=== PATIENT | female | born 1950 | race Caucasian/White ===

== ENCOUNTER 2017-03-08 08:00 | Day surgery (SDC) | payer MEDICARE ==
[2017-03-04 11:33] VITALS: BMI 29.4
[2017-03-08 08:40] LABS: BASO % 1.1 % (0-2.0); EOS % 3.9 % (0-4.5); HEMATOCRIT 41.5 % (32.4-45.2); HEMOGLOBIN 13.5 GM/dL (10.7-15.3); LYMPH % 41.1 % (8-40); MCH 31.5 pg (25.7-33.7); MCHC 32.6 g/dl (32.0-36.0); MEAN CELL VOLUME 96.6 fl (80-96); MEAN PLT VOLUME 8.1 fl (7.5-11.1); MONO % 5.8 % (3.8-10.2); NEUT % 48.1 % (42.8-82.8); PLATELET COUNT 272 K/MM3 (134-434); RDW 14.7 % (11.6-15.6); WHITE BLOOD COUNT 6.1 K/mm3 (4.0-10.0)
[2017-03-08 08:49] VITALS: TEMP 98.3
[2017-03-08 08:56] LABS: INR 0.79 (0.82-1.09); PROTHROMBIN TIME (PATIENT) 8.9 SEC (9.98-11.88)
[2017-03-08 08:57] LABS: ALBUMIN 1.7 g/dl (3.4-5.0); ANION GAP 5 (8-16); BLOOD UREA NITROGEN 10 mg/dL (7-18); CALCIUM 7.8 mg/dL (8.5-10.1); CHLORIDE 109 mmol/L (98-107); CO2 30 mmol/L (21-32); CREATININE 0.3 mg/dL (0.55-1.02); GLUCOSE,RANDOM 116 mg/dL (74-106); POTASSIUM 3.9 mmol/L (3.5-5.1); SGOT/AST 11 U/L (15-37); SGPT/ALT 13 U/L (12-78); SODIUM 144 mmol/L (136-145)
[2017-03-08 09:00] LABS: ALK PHOS 74 U/L (45-117); BILIRUBIN,TOTAL 0.1 mg/dL (0.2-1.0); TOT PROT 4.9 g/dl (6.4-8.2)
[2017-03-08 14:51] VITALS: BP 135/60; PULSE 82
--- NOTE | 2017-03-21 17:16 | PATH ---
Surgical Pathology Report Patient Name: MEI CALLOWAY [facility]. Rec. #: [id number] /Age/Gender: 1950 (Age: 66) / F Account: [id number] Location: Taken: 03/08/2017 Received: 03/08/2017 Reported: 03/21/2017 Physicians: Trae Dangelo M.D. Specimen(s) Received RENAL BIOPSY Clinical History 66 year-old female with nephrotic disease and diffuse membranous GNP resolved ??? now with ??? Intraoperative Consult Diagnosis Renal biopsy (intraoperative): Glomeruli present. Chanel Alva M.D., 03/08/17 Final Diagnosis KIDNEY, BIOPSY: MEMBRANOUS GLOMERULOPATHY, STAGE 2-3. ARTERIOLOSCLEROSIS WITH HYALINOSIS, MILD TO MODERATE. 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 The differential diagnosis includes primary & secondary forms of the MGN. HBV, HCV, & JAMES serologies are recommended. IF staining for PLA2R will be performed and a supplemental report will follow. Case sent for consultation to Dr. Delon Disla from [place], [place] ([id number]), the diagnosis above reflects his opinion. See complete report ([id number]) from [place], [place] for additional details. Electronically Signed Tiarra Lobo M.D. Gross Description Received fresh labeled "right renal biopsy," is a 1.3 cm in length x 0.1 cm in diameter short, cylindrical portion of soft tissue. The specimen is divided, placed into 10% buffered formalin, Dejuan fixative and glutaraldehyde. The specimen is sent to [facility] for further studies. 03/08/201703/08/2017
== END 2017-03-08 14:58 | disposition home or self-care (01) ==
LOC: JRADIR 08:00
PROVIDERS: ATTEND Internal Medicine Nephrology
PROC: 0TB03ZX Excision of Right Kidney, Percutaneous Approach, Diagnostic (ICD-10-PCS; principal; 2017-03-08)
PROC: BT41ZZZ Ultrasonography of Right Kidney (ICD-10-PCS; 2017-03-08)
DX: N04.9 Nephrotic syndrome with unspecified morphologic changes (principal)
CPT/HCPCS: 36415; 50200; 76098-TC-FY; 76942-TC; 76998-TC; 80053; 85025; 85610; 87899; 88305-TC

== ENCOUNTER 2017-07-04 04:24 | Emergency (ER) | payer MEDICARE ==
[2017-07-04 06:17] VITALS: BMI 28.6
--- NOTE | 2017-07-04 06:52 | PDOC ---
History of Present Illness - General Chief Complaint: Pain, Acute Stated Complaint: LEFT LEG PAIN Time Seen by Provider: 07/04/17 06:40 History Source: Patient Exam Limitations: No Limitations - History of Present Illness Initial Comments: 66-year-old female with past medical history significant for hypothyroidism hypertension renal insufficiency and neuropathy presents to the ER for evaluation of left hip pain after fall 2 days ago she points to the lateral aspect of the left hip as the area of her discomfort. She has difficulty walking no prior problems the left hip 07/04/17 06:47 Past History - Past Medical History Allergies/Adverse Reactions: Allergies Allergy/AdvReac Type Severity Reaction Status Date / Time No Known Drug Allergies Allergy Verified 07/04/17 06:17 Home Medications: Ambulatory Orders Paroxetine HCl [Paxil -] 20 mg PO DAILY #0 tablet 03/05/13 Zolpidem Tartrate [Ambien] 10 mg PO HS PRN #0 tablet 03/05/13 Levothyroxine [Synthroid -] 250 mcg PO DAILY 11/07/14 Losartan Potassium [Cozaar -] 50 mg PO BID 11/07/14 Ropinirole HCl [Requip -] 0.25 mg PO HS PRN 11/07/14 Atorvastatin Ca [Lipitor] 40 mg PO DAILY 03/04/17 Furosemide [Lasix] 40 mg PO BID 03/04/17 Vitamin D3 - 1,000 iu PO DAILY 03/04/17 Anemia: No Asthma: No Cancer: No Cardiac Disorders: No CVA: No COPD: Yes CHF: No Dementia: No Diabetes: No GI Disorders: No Disorders: No HTN: Yes Hypercholesterolemia: Yes Liver Disease: No Seizures: No Thyroid Disease: Yes (Hypothyroid) - Surgical History Abdominal Surgery: No Appendectomy: Yes Cardiac Surgery: No Cholecystectomy: Yes Lung Surgery: No Neurologic Surgery: No Orthopedic Surgery: Yes (ARTHROSCOPY BILAT KNEES; RIGHT WRIST SX) - Suicide/Smoking/Psychosocial Hx Smoking Status: Yes Smoking History: Current every day smoker Have you smoked in the past 12 months: Yes Number of Cigarettes Smoked Daily: 15 Information on smoking cessation initiated: No 'Breaking Loose' booklet given: 03/08/17 Hx Alcohol Use: No Drug/Substance Use Hx: No Substance Use Type: None Hx Substance Use Treatment: No Review of Systems - Review of Systems Musculoskeletal: Yes: Joint Pain All Other Systems: Reviewed and Negative *Physical Exam - Vital Signs Last Vital Signs Temp Pulse Resp BP Pulse Ox 98.2 F 97 H 18 166/92 97 07/04/17 06:14 07/04/17 06:14 07/04/17 06:14 07/04/17 06:14 07/04/17 06:14 - Physical Exam Comments: There is a small area of ecchymosis on the lateral aspect of the left hip on the skin overlying the iliac crest she has pain with internal and external rotation the left hip tenderness with mild pelvic compression thighs and calves are soft and nontender. She has no gross sensorimotor deficits. 07/04/17 06:50 Medical Decision Making - Medical Decision Making 66-year-old female with left hip injury after a fall. X-rays are pending. Differential includes fracture the pelvis, proximal femur or contusion. 07/04/17 06:54 *DC/Admit/Observation/Transfer - Discharge Dispostion Condition at time of disposition: Fair - Referrals - Patient Instructions - Post Discharge Activity
--- NOTE | 2017-07-04 08:58 | PDOC ---
*Physical Exam - Vital Signs Last Vital Signs Temp Pulse Resp BP Pulse Ox 98.2 F 97 H 18 166/92 97 07/04/17 06:14 07/04/17 06:14 07/04/17 06:14 07/04/17 06:14 07/04/17 06:14 ED Treatment Course - Medications Given in the ED: ED Medications Discontinued Medications Generic Name Dose Route Start Last Admin Trade Name Freq PRN Reason Stop Dose Admin Oxycodone/Acetaminophen 1 combo 07/04/17 06:44 07/04/17 06:49 Percocet 5/325 - PO 07/04/17 06:45 1 combo ONCE ONE Administration Medical Decision Making - Medical Decision Making 07/04/17 08:47 Patient received in sign out from ABHIJEET Durbin. Patient s/p fall. Patient's x-ray negative for hip fracture. Patient will be discharged home with recommendations to take Motrin 600 and to follow-up with orthopedist if symptoms continue. *DC/Admit/Observation/Transfer Diagnosis at time of Disposition: Hip pain - Discharge Dispostion Disposition: HOME Condition at time of disposition: Good - Referrals Referrals: Donal Chacon MD [Staff Physician] - - Patient Instructions Printed Discharge Instructions: DI for Contusion Additional Instructions: Please follow-up with Dr. Chacon and take Percocet as needed for discomfort but do not operate heavy machinery while taking this medication. - Post Discharge Activity
[2017-07-04 09:17] VITALS: BP 145/93; PULSE 98; TEMP 98.1
== END 2017-07-04 09:22 | disposition home or self-care (01) ==
LOC: JER 04:24
DX: S70.02XA Contusion of left hip, initial encounter (principal); W18.39XA Other fall on same level, initial encounter; Y93.89 Activity, other specified; Y92.038 Other place in apartment as the place of occurrence of the external cause; Y99.8 Other external cause status; I10 Essential (primary) hypertension; E78.00 Pure hypercholesterolemia, unspecified; E03.9 Hypothyroidism, unspecified; J44.9 Chronic obstructive pulmonary disease, unspecified
CPT/HCPCS: 73523-TC-FY; 99282-25

== ENCOUNTER 2020-01-29 06:06 | Day surgery (SDC) | payer MEDICARE, OTHER ==
[2020-01-24 17:06] VITALS: BMI 29.6
[2020-01-29] MEDS ORDERED: oxyCODONE HCL 5 MG TABLET PO PRN (06:55)
[2020-01-29] MEDS ORDERED: ONDANSETRON 4 MG/2 ML VIAL IVPUSH PRN (06:55)
[2020-01-29] MEDS ORDERED: LACTATED RINGERS SOLUTION 1,000 ML IV SCH (07:00)
[2020-01-29] MEDS ORDERED: ERYTHROMYCIN 0.5% OPHTHALMIC OINTMENT 3.5 GM TUBE ONE (07:08)
[2020-01-29] MEDS ORDERED: LIDOCAINE 1%/EPI 1:100000 (20 ML MULTI DOSE VIAL) ONE (07:08)
[2020-01-29] MEDS ORDERED: TETRACAINE 0.5% OPHTH SOLN 2 ML BOTTLE ONE (07:08)
[2020-01-29] MEDS ORDERED: BUPIVACAINE HCL/PF 0.5% (5MG/ML) 10 ML VIAL ONE (07:08)
[2020-01-29] MEDS ORDERED: POVIDONE-IODINE 5% OPHTHALMIC PREP 30 ML SOLUTION ONE (07:08)
[2020-01-29] MEDS ORDERED: MIDAZOLAM HCL 2 MG/2 ML SINGLE DOSE VIAL ONE ×3 (07:17→08:38)
[2020-01-29] MEDS ORDERED: PROPOFOL 20 ML ONE (07:17)
[2020-01-29] MEDS ORDERED: GLYCOPYRROLATE 0.2 MG/1 ML VIAL ONE (07:53)
[2020-01-29] MEDS ORDERED: KETAMINE HCL 200 MG/20 ML VIAL ONE (08:00)
[2020-01-29] MEDS ORDERED: ceFAZolin SODIUM 1 GM VIAL ONE (08:17)
[2020-01-29] MEDS ORDERED: ENALAPRILAT DIHYDRATE 2.5 MG/2 ML VIAL IVPB ONE (08:37)
[2020-01-29 10:43] VITALS: TEMP 97.9
[2020-01-29 12:31] VITALS: BP 134/88
[2020-01-29 12:42] VITALS: PULSE 78
== END 2020-01-29 12:25 | disposition home or self-care (01) ==
LOC: FASU 06:06
PROVIDERS: ATTEND Ophthalmology
PROC: 08SQ0ZZ Reposition Right Lower Eyelid, Open Approach (ICD-10-PCS; principal; 2020-01-29 08:20)
DX: H02.032 Senile entropion of right lower eyelid (principal)
CPT/HCPCS: 88304-TC; 94760

== ENCOUNTER 2021-08-20 14:31 | Emergency (ER) | payer OTHER ==
[2021-08-20 14:34] VITALS: TEMP 98.2; BMI 29.9
[2021-08-20] MEDS ORDERED: MECLIZINE HCL 25 MG TABLET (FP) PO ONE (16:42)
[2021-08-20] MEDS ORDERED: SODIUM CHLORIDE 0.9% 500 ML INFUS.BAG IV ONE (16:42)
[2021-08-20] MEDS ORDERED: METOCLOPRAMIDE HCL INJECTION 10 MG/2 ML VIAL IVPUSH ONE (16:43)
[2021-08-20] MEDS ORDERED: LORazepam 2 MG/ML SDV VIAL IVPUSH ONE ×2 (17:01)
[2021-08-20] MEDS ORDERED: METOCLOPRAMIDE HCL INJECTION 10 MG/2 ML VIAL ONE (17:28)
[2021-08-20] MEDS ORDERED: MECLIZINE HCL 25 MG TABLET (FP) ONE (17:28)
[2021-08-20 17:54] LABS: BASO % 1.3 % (0-2.0); EOS % 1.4 % (0-4.5); HEMOGLOBIN 13.1 GM/dL (10.7-15.3); LYMPH % 20.2 % (8-40); MCH 31.2 pg (25.7-33.7); MCHC 33.7 g/dl (32.0-36.0); MEAN CELL VOLUME 92.6 fl (80-96); MEAN PLT VOLUME 8.1 fl (7.5-11.1); NEUT % 72.1 % (42.8-82.8); PLATELET COUNT 290 10^3/uL (134-434); RBC 4.21 M/mm3 (3.60-5.2); WHITE BLOOD COUNT 7.8 K/mm3 (4.0-10.0)
[2021-08-20 17:56] VITALS: BP 148/84; PULSE 79
[2021-08-20 18:02] LABS: INR 0.94 (0.83-1.09); PROTHROMBIN TIME (PATIENT) 10.8 SEC (9.7-13.0)
[2021-08-20 18:05] LABS: ACTIVATED PTT 26.4 SECONDS (25.2-36.5)
[2021-08-20 18:11] LABS: ALBUMIN 2.7 g/dl (3.4-5.0); BLOOD UREA NITROGEN 11.5 mg/dL (7-18); CALCIUM 9.3 mg/dL (8.5-10.1); MAGNESIUM 1.9 mg/dL (1.8-2.4)
[2021-08-20 18:14] LABS: CREATININE 0.4 mg/dL (0.55-1.3); PHOSPHOROUS 5.6 mg/dL (2.5-4.9)
[2021-08-20 18:16] LABS: BILIRUBIN,TOTAL 0.2 mg/dL (0.2-1)
[2021-08-20 21:50] LABS: EPI CELLS 10 /uL (0-25.1); HYALINE CASTS 1 /uL (0-3.1); URINE APPEARANCE CLEAR; URINE BACTERIA 204 /uL (0-1359); URINE BILIRUBIN NEGATIVE (NEGATIVE); URINE COLOR YELLOW; URINE GLUCOSE (UA) NEGATIVE (NEGATIVE); URINE KETONE NEGATIVE (NEGATIVE); URINE LEUK ESTERASE NEGATIVE (NEGATIVE); URINE NITRITE NEGATIVE (NEGATIVE); URINE PROTEIN 3+ (NEGATIVE); URINE UROBILINOGEN 0.2 mg/dL (0.2-1.0); URINE WBC 46 /uL (0-25.8)
[2021-08-20 23:35] LABS: URINE RBC 35 /uL (0-23.9)
== END 2021-08-20 20:35 | disposition home or self-care (01) ==
LOC: JER 14:31
PROC: 3E033NZ Introduction of Analgesics, Hypnotics, Sedatives into Peripheral Vein, Percutaneous Approach (ICD-10-PCS; principal; 2021-08-20)
PROC: 3E033GC Introduction of Other Therapeutic Substance into Peripheral Vein, Percutaneous Approach (ICD-10-PCS; 2021-08-20)
DX: R42 Dizziness and giddiness (principal)
CPT/HCPCS: 36415; 70450-TC; 80053; 81003; 83735; 84100; 84484; 85025; 85610; 85730; 87086; 93005; 93010; 99285-25

== ENCOUNTER 2023-02-02 13:50 | Inpatient (IN) | payer OTHER ==
[2023-02-02] MEDS ORDERED: ALBUTEROL SO4 2.5/IPRATROPIUM 0.5 INH SOL 3 ML VIAL.NEB. NEB ONE ×2 (15:21→15:37)
[2023-02-02 16:14] LABS: VENOUS BASE EXCESS 2.8 mmol/L (-2-2); VENOUS PCO2 57.3 mmHg (38-52); VENOUS PH 7.336 (7.310-7.410)
[2023-02-02 16:29] LABS: BASO % 1.3 % (0-2.0); EOS % 2.2 % (0-4.5); HEMATOCRIT 37.3 % (32.4-45.2); HEMOGLOBIN 12.2 GM/dL (10.7-15.3); LYMPH % 24.1 % (8-40); MCH 31.3 pg (25.7-33.7); MCHC 32.7 g/dl (32.0-36.0); MEAN CELL VOLUME 95.8 fl (80-96); MEAN PLT VOLUME 8.1 fl (7.5-11.1); MONO % 6.9 % (3.8-10.2); NEUT % 65.5 % (42.8-82.8); PLATELET COUNT 247 10^3/uL (134-434); RBC 3.89 M/mm3 (3.60-5.2); RDW 15.4 % (11.6-15.6); WHITE BLOOD COUNT 6.2 K/mm3 (4.0-10.0)
[2023-02-02 16:41] LABS: CHLORIDE 106 mmol/L (98-107); POTASSIUM 3.5 mmol/L (3.5-5.1); SODIUM 143 mmol/L (136-145)
[2023-02-02 16:44] LABS: CALCIUM 8.1 mg/dL (8.5-10.1)
[2023-02-02 16:45] LABS: ALBUMIN 1.9 g/dl (3.4-5.0); ANION GAP 3 mmol/L (4-13); BLOOD UREA NITROGEN 6.6 mg/dL (7-18); CO2 34 mmol/L (21-32); GLUCOSE,RANDOM 92 mg/dL (74-106); MAGNESIUM 2.1 mg/dL (1.8-2.4)
[2023-02-02 16:48] LABS: CREATININE 0.5 mg/dL (0.55-1.3); SGOT/AST 19 U/L (15-37); SGPT/ALT 20 U/L (13-61)
[2023-02-02 16:49] LABS: TOT PROT 4.8 g/dl (6.4-8.2)
[2023-02-02 16:50] LABS: BILIRUBIN,TOTAL < 0.1 mg/dL (0.2-1)
[2023-02-02 16:51] LABS: ALK PHOS 60 U/L (45-117)
[2023-02-02 21:24] LABS: EPI CELLS 29 /uL (0-25.1); HYALINE CASTS 3 /uL (0-3.1); URINE APPEARANCE CLEAR; URINE BACTERIA 61 /uL (0-1359); URINE BILIRUBIN NEGATIVE (NEGATIVE); URINE COLOR YELLOW; URINE GLUCOSE (UA) NEGATIVE (NEGATIVE); URINE KETONE NEGATIVE (NEGATIVE); URINE LEUK ESTERASE NEGATIVE (NEGATIVE); URINE NITRITE NEGATIVE (NEGATIVE); URINE PROTEIN 4+ (NEGATIVE); URINE RBC 20 /uL (0-23.9); URINE UROBILINOGEN 0.2 mg/dL (0.2-1.0)
[2023-02-02 21:29] LABS: URINE WBC 89.7 /uL (0-25.8)
[2023-02-03] MEDS ORDERED: rOPINIRole HCL 0.25 MG TABLET PO PRN (03:00)
[2023-02-03] MEDS ORDERED: FUROSEMIDE 40 MG/4 ML INJECTABLE VIAL IVPUSH ONE (03:30)
[2023-02-03] MEDS: methylPREDNISolone NA SUCC 40 MG/1 ML VIAL IVPUSH SCH ×3 (04:02→21:57)
[2023-02-03 04:13] VITALS: BMI 31.5
[2023-02-03] MEDS ORDERED: LEVOTHYROXINE NA 200 MCG TABLET PO SCH (07:00)
[2023-02-03] MEDS: LEVOTHYROXINE 200 MCG, LEVOTHYROXINE 50 MCG PO SCH (07:05)
[2023-02-03] MEDS: LEVALBUTEROL HCL 0.63 MG/3 ML VIAL.NEB. IH SCH ×4 (07:45→20:10)
[2023-02-03 08:47] LABS: ALBUMIN 2.1 g/dl (3.4-5.0); CALCIUM 8.1 mg/dL (8.5-10.1)
[2023-02-03 08:48] LABS: BLOOD UREA NITROGEN 9.1 mg/dL (7-18)
[2023-02-03 08:49] LABS: BASO % 0.8 % (0-2.0); EOS % 0.9 % (0-4.5); HEMATOCRIT 38.8 % (32.4-45.2); LYMPH % 10.7 % (8-40); MCH 31.7 pg (25.7-33.7); MCHC 33.4 g/dl (32.0-36.0); MEAN PLT VOLUME 8.2 fl (7.5-11.1); MONO % 1.7 % (3.8-10.2); NEUT % 85.9 % (42.8-82.8); PLATELET COUNT 295 10^3/uL (134-434); RBC 4.09 M/mm3 (3.60-5.2); RDW 15.4 % (11.6-15.6); WHITE BLOOD COUNT 6.9 K/mm3 (4.0-10.0)
[2023-02-03 08:51] LABS: CREATININE 0.7 mg/dL (0.55-1.3); PHOSPHOROUS 3.9 mg/dL (2.5-4.9)
[2023-02-03 08:52] LABS: BILIRUBIN,TOTAL 0.1 mg/dL (0.2-1); TOT PROT 5.6 g/dl (6.4-8.2)
[2023-02-03 09:04] LABS: CHOLESTEROL 300 mg/dL (50-200)
[2023-02-03 09:06] LABS: LDL CHOLESTEROL (ONLY SJRH) 150 mg/dL (5-100)
[2023-02-03 09:07] LABS: HDL CHOLESTEROL 89 mg/dL (40-60)
[2023-02-03] MEDS ORDERED: ROFLUMILAST 500 MCG TABLET PO SCH (10:00)
[2023-02-03] MEDS ORDERED: CEFTRIAXONE 1 GM in DEXTROSE 5%-WATER - 50 ML IVPB SCH (10:45)
[2023-02-03] MEDS: DOXYCYCLINE HYCLATE 100 MG CAPSULE PO SCH ×2 (10:49→17:02)
[2023-02-03] MEDS: PARoxetine HCL 20 MG TABLET PO SCH (10:49)
[2023-02-03] MEDS: LOSARTAN POTASSIUM 50 MG TABLET PO SCH (10:49)
[2023-02-03] MEDS: ENOXAPARIN NA (PORCINE) 40 MG/0.4 ML DISP.SYRIN SQ SCH (10:49)
[2023-02-03] MEDS: BUDESONIDE/FORMETEROL FUMARATE 160/4.5 mcg INHALER IH SCH ×2 (10:49→22:04)
[2023-02-03] MEDS: POLYETHYLENE GLYCOL (HEALTHYLAX) 3350 17 GM PACKET PO SCH ×2 (11:47→21:57)
[2023-02-03] MEDS: ROSUVASTATIN CA 20 MG TABLET PO SCH (21:56)
[2023-02-03] MEDS ORDERED: MELATONIN 5 MG TABLETS PO ONE (22:00)
[2023-02-04] MEDS: LEVOTHYROXINE 200 MCG, LEVOTHYROXINE 50 MCG PO SCH (06:07)
[2023-02-04] MEDS: LEVALBUTEROL HCL 0.63 MG/3 ML VIAL.NEB. IH SCH ×4 (07:10→20:19)
[2023-02-04] MEDS: LOSARTAN POTASSIUM 50 MG TABLET PO SCH (09:21)
[2023-02-04] MEDS: POLYETHYLENE GLYCOL (HEALTHYLAX) 3350 17 GM PACKET PO SCH ×2 (09:21→21:15)
[2023-02-04] MEDS: DOXYCYCLINE HYCLATE 100 MG CAPSULE PO SCH ×2 (09:21→17:21)
[2023-02-04] MEDS: PARoxetine HCL 20 MG TABLET PO SCH (09:21)
[2023-02-04] MEDS: methylPREDNISolone NA SUCC 40 MG/1 ML VIAL IVPUSH SCH (09:22)
[2023-02-04] MEDS: ENOXAPARIN NA (PORCINE) 40 MG/0.4 ML DISP.SYRIN SQ SCH (09:25)
[2023-02-04] MEDS: BUDESONIDE/FORMETEROL FUMARATE 160/4.5 mcg INHALER IH SCH ×2 (09:26→21:18)
[2023-02-04 09:28] LABS: BASO % 0.7 % (0-2.0); EOS % 0.3 % (0-4.5); HEMATOCRIT 38.5 % (32.4-45.2); HEMOGLOBIN 12.6 GM/dL (10.7-15.3); LYMPH % 25.2 % (8-40); MCH 31.4 pg (25.7-33.7); MCHC 32.7 g/dl (32.0-36.0); MEAN CELL VOLUME 95.9 fl (80-96); MEAN PLT VOLUME 8.1 fl (7.5-11.1); MONO % 7.6 % (3.8-10.2); NEUT % 66.2 % (42.8-82.8); PLATELET COUNT 306 10^3/uL (134-434); RBC 4.02 M/mm3 (3.60-5.2); RDW 15.7 % (11.6-15.6)
[2023-02-04] MEDS ORDERED: DOXYCYCLINE HYCLATE 100 MG CAPSULE PO SCH (10:00)
[2023-02-04 11:41] LABS: POTASSIUM 4.4 mmol/L (3.5-5.1)
[2023-02-04 12:20] LABS: BLOOD UREA NITROGEN 15.8 mg/dL (7-18); MAGNESIUM 2.1 mg/dL (1.8-2.4)
[2023-02-04 12:22] LABS: CREATININE 0.8 mg/dL (0.55-1.3)
[2023-02-04 12:23] LABS: PHOSPHOROUS 4.2 mg/dL (2.5-4.9)
[2023-02-04 12:24] LABS: BILIRUBIN,TOTAL 0.2 mg/dL (0.2-1); TOT PROT 5.3 g/dl (6.4-8.2)
[2023-02-04] MEDS: predniSONE 20 MG TABLET (UD) PO SCH (17:20)
[2023-02-04] MEDS: ROSUVASTATIN CA 20 MG TABLET PO SCH (21:14)
[2023-02-04] MEDS ORDERED: methylPREDNISolone NA SUCC 40 MG/1 ML VIAL IVPUSH SCH (22:00)
[2023-02-05] MEDS: LEVOTHYROXINE 200 MCG, LEVOTHYROXINE 50 MCG PO SCH (06:48)
[2023-02-05 06:57] VITALS: RESP 20
[2023-02-05] MEDS: LEVALBUTEROL HCL 0.63 MG/3 ML VIAL.NEB. IH SCH ×3 (07:20→15:03)
[2023-02-05 08:25] LABS: BASO % 0.5 % (0-2.0); HEMATOCRIT 37.2 % (32.4-45.2); HEMOGLOBIN 12.3 GM/dL (10.7-15.3); LYMPH % 15.1 % (8-40); MCH 31.8 pg (25.7-33.7); MCHC 32.9 g/dl (32.0-36.0); MEAN CELL VOLUME 96.6 fl (80-96); MEAN PLT VOLUME 8.2 fl (7.5-11.1); MONO % 2.8 % (3.8-10.2); NEUT % 81.6 % (42.8-82.8); PLATELET COUNT 298 10^3/uL (134-434); RBC 3.85 M/mm3 (3.60-5.2); RDW 15.6 % (11.6-15.6)
[2023-02-05 09:00] LABS: POTASSIUM 4.5 mmol/L (3.5-5.1)
[2023-02-05 09:13] LABS: BLOOD UREA NITROGEN 15.2 mg/dL (7-18); CALCIUM 9.1 mg/dL (8.5-10.1); MAGNESIUM 2.3 mg/dL (1.8-2.4)
[2023-02-05 09:15] LABS: CREATININE 0.7 mg/dL (0.55-1.3)
[2023-02-05 09:16] LABS: PHOSPHOROUS 5.4 mg/dL (2.5-4.9)
[2023-02-05 09:17] LABS: BILIRUBIN,TOTAL 0.2 mg/dL (0.2-1); TOT PROT 5.4 g/dl (6.4-8.2)
[2023-02-05] MEDS: predniSONE 20 MG TABLET (UD) PO SCH (09:34)
[2023-02-05] MEDS: POLYETHYLENE GLYCOL (HEALTHYLAX) 3350 17 GM PACKET PO SCH (09:36)
[2023-02-05] MEDS: LOSARTAN POTASSIUM 50 MG TABLET PO SCH (09:37)
[2023-02-05] MEDS: PARoxetine HCL 20 MG TABLET PO SCH (09:37)
[2023-02-05] MEDS: DOXYCYCLINE HYCLATE 100 MG CAPSULE PO SCH (09:38)
[2023-02-05] MEDS: BUDESONIDE/FORMETEROL FUMARATE 160/4.5 mcg INHALER IH SCH (09:41)
[2023-02-05] MEDS: ENOXAPARIN NA (PORCINE) 40 MG/0.4 ML DISP.SYRIN SQ SCH (09:41)
[2023-02-05 14:33] VITALS: BP 152/85; PULSE 75; TEMP 98.3
== END 2023-02-05 15:53 | disposition home or self-care (01) | DRG 189 ==
LOC: JER 13:50 → JERBED 18:34 → J6S 02-03 03:40 → OBSVTOIN 02-03 08:43
PROVIDERS: ADMIT Internal Medicine; ATTEND Internal Medicine
DX: J96.21 Acute and chronic respiratory failure with hypoxia (principal); J18.9 Pneumonia, unspecified organism; J44.1 Chronic obstructive pulmonary disease with (acute) exacerbation; J98.11 Atelectasis; J44.0 Chronic obstructive pulmonary disease with (acute) lower respiratory infection; E03.9 Hypothyroidism, unspecified; E78.5 Hyperlipidemia, unspecified; I12.9 Hypertensive chronic kidney disease with stage 1 through stage 4 chronic kidney disease, or unspecified chronic kidney disease; N18.9 Chronic kidney disease, unspecified; G25.81 Restless legs syndrome; G62.9 Polyneuropathy, unspecified
CPT/HCPCS: 0241U-QW; 36415; 71045-TC-FY; 71275-TC; 80053; 80061; 81003; 82803; 83036; 83735; 83880; 84100; 84443; 84484; 85025; 87086; 93005; 93010; 93306-TC; 94761; 99285-25; G0378; Q9967

== ENCOUNTER 2023-05-07 21:53 | Inpatient (IN) | payer OTHER ==
[2023-05-07 22:41] VITALS: BMI 31.4
[2023-05-07] MEDS ORDERED: LOSARTAN POTASSIUM 50 MG TABLET ONE (23:12)
[2023-05-07] MEDS: LOSARTAN POTASSIUM 50 MG TABLET PO ONE (23:42)
[2023-05-07] MEDS ORDERED: ACETAMINOPHEN INJECTION 100 ML IVPB ONE (23:55)
[2023-05-08] MEDS: ACETAMINOPHEN 1000 MG/100 ML BAG IVPB ONE
[2023-05-08] MEDS: METOCLOPRAMIDE HCL INJECTION 10 MG/2 ML VIAL IVPUSH ONE (00:26)
[2023-05-08 00:29] LABS: BASO % 1.1 % (0-2.0); EOS % 1.4 % (0-4.5); HEMATOCRIT 39.3 % (32.4-45.2); HEMOGLOBIN 13.1 GM/dL (10.7-15.3); MCH 31.3 pg (25.7-33.7); MCHC 33.3 g/dl (32.0-36.0); MEAN PLT VOLUME 8.9 fl (7.5-11.1); MONO % 5.6 % (3.8-10.2); NEUT % 67.9 % (42.8-82.8); PLATELET COUNT 268 10^3/uL (134-434); RBC 4.18 M/mm3 (3.60-5.2); WHITE BLOOD COUNT 8.2 K/mm3 (4.0-10.0)
[2023-05-08 00:38] LABS: INR 0.9 (0.83-1.09); PROTHROMBIN TIME (PATIENT) 10.5 SEC (9.7-13.0)
[2023-05-08 00:41] LABS: ACTIVATED PTT 24.7 SECONDS (25.2-36.5)
[2023-05-08 00:46] LABS: POTASSIUM 3.6 mmol/L (3.5-5.1)
[2023-05-08 00:48] LABS: CALCIUM 8.3 mg/dL (8.5-10.1)
[2023-05-08 00:49] LABS: ALBUMIN 1.9 g/dl (3.4-5.0); BLOOD UREA NITROGEN 13.2 mg/dL (7-18); MAGNESIUM 1.8 mg/dL (1.8-2.4)
[2023-05-08 00:52] LABS: CREATININE 0.5 mg/dL (0.55-1.3)
[2023-05-08 00:53] LABS: BILIRUBIN,TOTAL 0.1 mg/dL (0.2-1); TOT PROT 4.9 g/dl (6.4-8.2)
[2023-05-08 00:57] LABS: N-TERMINAL BNP 1180.2 pg/ml (5-125)
[2023-05-08 01:16] LABS: EPI CELLS 31 /uL (0-25.1); HYALINE CASTS 1 /uL (0-3.1); PH,URINE 7.5 (5.0-8.0); URINE APPEARANCE CLEAR; URINE BACTERIA 26 /uL (0-1359); URINE BILIRUBIN NEGATIVE (NEGATIVE); URINE COLOR YELLOW; URINE GLUCOSE (UA) TRACE (NEGATIVE); URINE KETONE NEGATIVE (NEGATIVE); URINE LEUK ESTERASE NEGATIVE (NEGATIVE); URINE NITRITE NEGATIVE (NEGATIVE); URINE PROTEIN 4+ (NEGATIVE); URINE RBC 19 /uL (0-23.9); URINE UROBILINOGEN 0.2 mg/dL (0.2-1.0); URINE WBC 38 /uL (0-25.8)
[2023-05-08] MEDS ORDERED: FUROSEMIDE 40 MG/4 ML INJECTABLE VIAL ONE (01:34)
[2023-05-08] MEDS: FUROSEMIDE 40 MG/4 ML INJECTABLE VIAL IVPUSH ONE (01:36)
[2023-05-08] MEDS ORDERED: PATIENT'S OWN MEDICATION (NON-FORMULARY) (Sumatriptan Succinate [Sumatriptan Succinate] 10 PO PRN (02:53)
[2023-05-08] MEDS ORDERED: ALPRAZolam 0.25 MG TABLET PO PRN (02:53)
[2023-05-08] MEDS ORDERED: ALBUTEROL SO4 2.5/IPRATROPIUM 0.5 INH SOL 3 ML VIAL.NEB. NEB PRN (02:53)
[2023-05-08] MEDS ORDERED: ALBUTEROL SO4 HFA INHALER IH PRN (02:53)
[2023-05-08] MEDS ORDERED: hydrALAZINE HCL 20 MG/ML VIAL IVPUSH PRN (03:32)
[2023-05-08] MEDS: PATIENT'S OWN MEDICATION (NON-FORMULARY) (Sumatriptan Succinate [Sumatriptan Succinate] 10 PO SCH (03:39)
[2023-05-08] MEDS: VITAMIN D3 PO SCH (03:55)
[2023-05-08] MEDS ORDERED: LEVOTHYROXINE NA 50 MCG TABLET (FP) ONE (06:03)
[2023-05-08] MEDS ORDERED: LEVOTHYROXINE NA 100 MCG TABLET (FP) ONE (06:03)
[2023-05-08] MEDS: LEVOTHYROXINE NA 125 MCG TABLET (FP) PO SCH (06:13)
[2023-05-08 07:35] LABS: HEMATOCRIT 37.1 % (32.4-45.2); HEMOGLOBIN 12.3 GM/dL (10.7-15.3); MCH 31.5 pg (25.7-33.7); MCHC 33.3 g/dl (32.0-36.0); MEAN CELL VOLUME 94.6 fl (80-96); MEAN PLT VOLUME 8.5 fl (7.5-11.1); PLATELET COUNT 259 10^3/uL (134-434); RBC 3.92 M/mm3 (3.60-5.2); RDW 14.8 % (11.6-15.6); WHITE BLOOD COUNT 6.9 K/mm3 (4.0-10.0)
[2023-05-08 07:59] LABS: POTASSIUM 3.6 mmol/L (3.5-5.1)
[2023-05-08 08:08] LABS: CALCIUM 8.1 mg/dL (8.5-10.1)
[2023-05-08 08:09] LABS: ALBUMIN 1.8 g/dl (3.4-5.0); MAGNESIUM 1.8 mg/dL (1.8-2.4)
[2023-05-08 08:12] LABS: CREATININE 0.5 mg/dL (0.55-1.3); PHOSPHOROUS 4.1 mg/dL (2.5-4.9)
[2023-05-08 08:13] LABS: BILIRUBIN,TOTAL 0.2 mg/dL (0.2-1); TOT PROT 4.6 g/dl (6.4-8.2)
[2023-05-08] MEDS ORDERED: FUROSEMIDE 20 MG TABLET (FP) PO SCH (10:00)
[2023-05-08] MEDS ORDERED: LOSARTAN POTASSIUM 25 MG TABLET PO SCH (10:00)
[2023-05-08] MEDS ORDERED: amLODIPine BESYLATE 5 MG TABLET (FP) ONE (10:06)
[2023-05-08] MEDS: ENOXAPARIN NA (PORCINE) 40 MG/0.4 ML DISP.SYRIN SQ SCH (10:12)
[2023-05-08] MEDS: FUROSEMIDE 20 MG TABLET (FP) PO SCH (10:12)
[2023-05-08] MEDS: amLODIPine BESYLATE 5 MG TABLET (FP) PO SCH (10:12)
[2023-05-08] MEDS: PARoxetine HCL 20 MG TABLET PO SCH (10:12)
[2023-05-08] MEDS: FLUTICASONE/UMECLIDIN/VILANTER(200-62.5-25 TRELEGY ELLIPTA) INAHLER IH SCH (10:12)
[2023-05-08] MEDS ORDERED: CHOLECALCIFEROL (VIT D3) 1,000 UNIT (25 MCG) TABLET ONE (10:15)
[2023-05-08] MEDS: CHOLECALCIFEROL (VIT D3) 1,000 UNIT (25 MCG) TABLET PO SCH (10:20)
[2023-05-08] MEDS ORDERED: MAGNESIUM 1GM/D5W - 1 GM/100 ML IVPB IVPB ONE ×2 (11:42→12:05)
[2023-05-08] MEDS ORDERED: TRIMETHOBENZAMIDE HCL 200MG/2ML INJ IM ONE ×2 (11:42→13:50)
[2023-05-08] MEDS: SUMAtriptan SUCCINATE 50 MG TABLET PO PRN (12:00)
[2023-05-08] MEDS: MAGNESIUM SULF 50% (8.12 MEQ/2 ML-1 GM VIAL) IVPB ONE (12:13)
[2023-05-08] MEDS: MAG HYDROX/AL HYDROX/SIMETH 30 ML UNIT-DOSE CUP PO PRN (12:35)
[2023-05-08] MEDS: TRIMETHOBENZAMIDE HCL 200MG/2ML INJ IM PRN (13:54)
[2023-05-08] MEDS ORDERED: LOSARTAN POTASSIUM 50 MG TABLET PO SCH (22:00)
[2023-05-08] MEDS ORDERED: LOSARTAN POTASSIUM 50 MG TABLET ONE (22:04)
[2023-05-08] MEDS ORDERED: ROSUVASTATIN CA 20 MG TABLET ONE (22:05)
[2023-05-08] MEDS: ROSUVASTATIN CA 20 MG TABLET PO SCH (22:47)
[2023-05-08] MEDS: LOSARTAN POTASSIUM 50 MG TABLET PO SCH (22:47)
[2023-05-08] MEDS ORDERED: LEVOTHYROXINE NA 125 MCG TABLET (FP) PO SCH (22:54)
[2023-05-09] MEDS: rOPINIRole HCL 0.25 MG TABLET PO PRN (00:49)
[2023-05-09 07:35] LABS: HEMATOCRIT 37.6 % (32.4-45.2); HEMOGLOBIN 12.6 GM/dL (10.7-15.3); MCH 31.5 pg (25.7-33.7); MCHC 33.6 g/dl (32.0-36.0); MEAN CELL VOLUME 93.8 fl (80-96); MEAN PLT VOLUME 8.2 fl (7.5-11.1); PLATELET COUNT 243 10^3/uL (134-434); RBC 4.01 M/mm3 (3.60-5.2); RDW 14.6 % (11.6-15.6); WHITE BLOOD COUNT 6.4 K/mm3 (4.0-10.0)
[2023-05-09 07:49] LABS: POTASSIUM 3.7 mmol/L (3.5-5.1)
[2023-05-09 07:54] LABS: CALCIUM 8.5 mg/dL (8.5-10.1)
[2023-05-09] MEDS ORDERED: LEVOTHYROXINE NA 100 MCG TABLET (FP) ONE (07:54)
[2023-05-09 07:55] LABS: BLOOD UREA NITROGEN 8.8 mg/dL (7-18); MAGNESIUM 2.1 mg/dL (1.8-2.4)
[2023-05-09] MEDS ORDERED: LEVOTHYROXINE NA 75 MCG TABLET (FP) ONE (07:55)
[2023-05-09 07:58] LABS: CREATININE 0.5 mg/dL (0.55-1.3); PHOSPHOROUS 3.7 mg/dL (2.5-4.9)
[2023-05-09] MEDS: LEVOTHYROXINE 200 MCG, LEVOTHYROXINE 75 MCG PO SCH (08:11)
[2023-05-09] MEDS ORDERED: CHOLECALCIFEROL (VIT D3) 1,000 UNIT (25 MCG) TABLET ONE (09:07)
[2023-05-09] MEDS ORDERED: amLODIPine BESYLATE 5 MG TABLET (FP) ONE (09:07)
[2023-05-09] MEDS ORDERED: PARoxetine HCL 10 MG TABLET ONE (09:08)
[2023-05-09] MEDS ORDERED: ENOXAPARIN NA (PORCINE) 40 MG/0.4 ML DISP.SYRIN SQ ONE (09:08)
[2023-05-09] MEDS ORDERED: FUROSEMIDE 40 MG/4 ML INJECTABLE VIAL ONE (09:08)
[2023-05-09] MEDS: LIOTHYRONINE SODIUM 5 MCG TABLET PO SCH (09:41)
[2023-05-09] MEDS: FUROSEMIDE 40 MG/4 ML INJECTABLE VIAL IVPUSH SCH (09:42)
[2023-05-09] MEDS ORDERED: hydrALAZINE HCL 20 MG/ML VIAL ONE (14:56)
[2023-05-09] MEDS: hydrALAZINE HCL 20 MG/ML VIAL IVPUSH PRN (15:05)
[2023-05-09] MEDS ORDERED: ALBUTEROL SO4 HFA INHALER IH PRN (17:36)
[2023-05-09] MEDS ORDERED: TRIMETHOBENZAMIDE HCL 200MG/2ML INJ IM PRN (17:36)
[2023-05-09] MEDS ORDERED: ALPRAZolam 0.25 MG TABLET PO PRN (17:36)
[2023-05-09] MEDS ORDERED: ALBUTEROL SO4 2.5/IPRATROPIUM 0.5 INH SOL 3 ML VIAL.NEB. NEB PRN (17:36)
[2023-05-09] MEDS ORDERED: MAG HYDROX/AL HYDROX/SIMETH 30 ML UNIT-DOSE CUP PO PRN (17:36)
[2023-05-09] MEDS: LOSARTAN POTASSIUM 50 MG TABLET PO SCH (22:29)
[2023-05-09] MEDS: ROSUVASTATIN CA 20 MG TABLET PO SCH (22:29)
[2023-05-10] MEDS: LEVOTHYROXINE 200 MCG, LEVOTHYROXINE 75 MCG PO SCH (06:04)
[2023-05-10] MEDS: amLODIPine BESYLATE 5 MG TABLET (FP) PO SCH (10:07)
[2023-05-10] MEDS: CHOLECALCIFEROL (VIT D3) 1,000 UNIT (25 MCG) TABLET PO SCH (10:08)
[2023-05-10] MEDS: PARoxetine HCL 20 MG TABLET PO SCH (10:08)
[2023-05-10] MEDS: FUROSEMIDE 40 MG/4 ML INJECTABLE VIAL IVPUSH SCH (10:09)
[2023-05-10] MEDS: LIOTHYRONINE SODIUM 5 MCG TABLET PO SCH (10:09)
[2023-05-10] MEDS: ENOXAPARIN NA (PORCINE) 40 MG/0.4 ML DISP.SYRIN SQ SCH (10:10)
[2023-05-10] MEDS: FLUTICASONE/UMECLIDIN/VILANTER(200-62.5-25 TRELEGY ELLIPTA) INAHLER IH SCH (11:46)
[2023-05-10] MEDS: rOPINIRole HCL 0.25 MG TABLET PO PRN (19:01)
[2023-05-10] MEDS: LOSARTAN POTASSIUM 50 MG TABLET PO SCH (21:46)
[2023-05-11] MEDS: FUROSEMIDE 40 MG TABLET (FP) PO SCH (09:19)
[2023-05-11 11:27] VITALS: BP 135/87; PULSE 71; RESP 20; TEMP 98.6
== END 2023-05-11 11:10 | disposition home health service (06) | DRG 304 ==
LOC: JER 21:53 → JERBED 23:28 → OBSVTOIN 05-08 03:36 → J8W 05-09 16:18
PROVIDERS: ADMIT Internal Medicine; ATTEND Nurse Practitioner Family
DX: I16.0 Hypertensive urgency (principal); I50.31 Acute diastolic (congestive) heart failure; N06.20 Isolated proteinuria with diffuse membranous glomerulonephritis, unspecified; I13.0 Hypertensive heart and chronic kidney disease with heart failure and stage 1 through stage 4 chronic kidney disease, or unspecified chronic kidney disease; E03.9 Hypothyroidism, unspecified; R26.81 Unsteadiness on feet; Z99.81 Dependence on supplemental oxygen; J44.9 Chronic obstructive pulmonary disease, unspecified; E78.5 Hyperlipidemia, unspecified; I45.10 Unspecified right bundle-branch block; G43.909 Migraine, unspecified, not intractable, without status migrainosus; G25.81 Restless legs syndrome; E55.9 Vitamin D deficiency, unspecified; N18.9 Chronic kidney disease, unspecified
CPT/HCPCS: 0241U-QW; 36415; 70450-TC; 71045-TC-FY; 80048; 80053; 81003; 83036; 83735; 83880; 84100; 84436; 84439; 84443; 84481; 84484; 85025; 85027; 85610; 85730; 86140; 87086; 93005; 93010; 97116-GP; 97161-GP; 99285-25; G0378; J0131

== ENCOUNTER 2023-06-13 01:35 | Inpatient (IN) | payer OTHER ==
[2023-06-13 02:12] LABS: BASO % 0.7 % (0-2.0); EOS % 0.1 % (0-4.5); HEMATOCRIT 30.9 % (32.4-45.2); HEMOGLOBIN 10.2 GM/dL (10.7-15.3); LYMPH % 9.9 % (8-40); MCH 30.2 pg (25.7-33.7); MCHC 32.9 g/dl (32.0-36.0); MEAN CELL VOLUME 91.9 fl (80-96); MEAN PLT VOLUME 8.2 fl (7.5-11.1); MONO % 8.4 % (3.8-10.2); NEUT % 80.9 % (42.8-82.8); PLATELET COUNT 294 10^3/uL (134-434); RBC 3.36 M/mm3 (3.60-5.2); RDW 14.1 % (11.6-15.6); WHITE BLOOD COUNT 12.6 K/mm3 (4.0-10.0)
[2023-06-13 02:23] LABS: INR 1.12 (0.83-1.09); PROTHROMBIN TIME (PATIENT) 12.6 SEC (9.7-13.0)
[2023-06-13 02:26] LABS: ACTIVATED PTT 30.9 SECONDS (25.2-36.5)
[2023-06-13 02:31] LABS: POTASSIUM 3.6 mmol/L (3.5-5.1)
[2023-06-13 02:32] LABS: CALCIUM 8.6 mg/dL (8.5-10.1)
[2023-06-13 02:33] LABS: ALBUMIN 1.8 g/dl (3.4-5.0); BLOOD UREA NITROGEN 16.8 mg/dL (7-18)
[2023-06-13 02:36] LABS: CREATININE 0.8 mg/dL (0.55-1.3)
[2023-06-13 02:38] LABS: BILIRUBIN,TOTAL 0.5 mg/dL (0.2-1); TOT PROT 4.9 g/dl (6.4-8.2)
[2023-06-13 02:39] LABS: VENOUS O2 SATURATION 49.2 % (70-80); VENOUS PCO2 59.4 mmHg (38-52); VENOUS PH 7.218 (7.310-7.410)
[2023-06-13 02:41] LABS: N-TERMINAL BNP 972.8 pg/ml (5-125)
[2023-06-13] MEDS ORDERED: LEVALBUTEROL HCL 0.63 MG/3 ML VIAL.NEB. IH ONE (02:48)
[2023-06-13] MEDS ORDERED: methylPREDNISolone NA SUCC 125 MG/2 ML VIAL ONE (02:49)
[2023-06-13] MEDS ORDERED: CEFTRIAXONE 1 GM/50 ML BAG ONE (02:49)
[2023-06-13] MEDS ORDERED: AZITHROMYCIN IVPB 500 MG/250 ML BAG IVPB ONE (02:49)
[2023-06-13] MEDS: AZITHROMYCIN IVPB 500 MG in DEXTROSE 5%-WATER - 250 ML IVPB ONE (03:05)
[2023-06-13] MEDS: methylPREDNISolone NA SUCC 125 MG/2 ML VIAL IVPUSH ONE (03:05)
[2023-06-13] MEDS: CEFTRIAXONE 1 GM in DEXTROSE 5%-WATER - 100 ML IVPB ONE (03:05)
[2023-06-13] MEDS: LEVALBUTEROL HCL 0.63 MG/3 ML VIAL.NEB. IH ONE (03:05)
[2023-06-13 03:49] LABS: MAGNESIUM 1.9 mg/dL (1.8-2.4)
[2023-06-13] MEDS: SODIUM CHLORIDE 0.9% 500 ML INFUS.BAG IV ONE ×2 (05:02→06:33)
[2023-06-13 08:33] LABS: PH,URINE 6.5 (5.0-8.0); URINE APPEARANCE CLEAR; URINE BILIRUBIN NEGATIVE (NEGATIVE); URINE COLOR YELLOW; URINE GLUCOSE (UA) NEGATIVE (NEGATIVE); URINE KETONE NEGATIVE (NEGATIVE); URINE LEUK ESTERASE NEGATIVE (NEGATIVE); URINE NITRITE NEGATIVE (NEGATIVE); URINE PROTEIN 4+ (NEGATIVE); URINE UROBILINOGEN 0.2 mg/dL (0.2-1.0)
[2023-06-13 09:33] LABS: EPI CELLS 23 /uL (0-25.1); HYALINE CASTS 0.29 /uL (0-3.1); URINE BACTERIA 46.5 /uL (0-1359); URINE RBC 18 /uL (0-23.9); URINE WBC 55.4 /uL (0-25.8)
[2023-06-13] MEDS ORDERED: LEVOTHYROXINE NA 25 MCG TABLET (FP) PO SCH (10:00)
[2023-06-13] MEDS ORDERED: FUROSEMIDE 40 MG TABLET (FP) ONE (10:26)
[2023-06-13] MEDS ORDERED: AZITHROMYCIN 500 MG TABLET ONE (10:27)
[2023-06-13] MEDS ORDERED: predniSONE 20 MG TABLET (UD) ONE (10:27)
[2023-06-13] MEDS ORDERED: ENOXAPARIN NA (PORCINE) 40 MG/0.4 ML DISP.SYRIN SQ ONE (10:27)
[2023-06-13] MEDS ORDERED: amLODIPine BESYLATE 5 MG TABLET (FP) ONE (10:27)
[2023-06-13] MEDS: LIOTHYRONINE SODIUM 5 MCG TABLET PO SCH (10:35)
[2023-06-13] MEDS: amLODIPine BESYLATE 5 MG TABLET (FP) PO SCH (10:35)
[2023-06-13] MEDS: PARoxetine HCL 20 MG TABLET PO SCH (10:35)
[2023-06-13] MEDS: FUROSEMIDE 40 MG TABLET (FP) PO SCH (10:35)
[2023-06-13] MEDS: AZITHROMYCIN 500 MG TABLET PO SCH (10:35)
[2023-06-13] MEDS: predniSONE 20 MG TABLET (UD) PO SCH (10:35)
[2023-06-13] MEDS: ENOXAPARIN NA (PORCINE) 40 MG/0.4 ML DISP.SYRIN SQ SCH (10:35)
[2023-06-13] MEDS ORDERED: ALBUTEROL SO4 2.5/IPRATROPIUM 0.5 INH SOL 3 ML VIAL.NEB. NEB ONE ×4 (12:08→20:46)
[2023-06-13] MEDS: ALBUTEROL SO4 2.5/IPRATROPIUM 0.5 INH SOL 3 ML VIAL.NEB. NEB SCH (12:11)
[2023-06-13] MEDS: BUDESONIDE/FORMETEROL FUMARATE 160/4.5 mcg INHALER IH SCH (14:19)
[2023-06-13] MEDS ORDERED: methylPREDNISolone NA SUCC 40 MG/1 ML VIAL ONE (18:54)
[2023-06-13] MEDS: methylPREDNISolone NA SUCC 40 MG/1 ML VIAL IVPUSH SCH (19:02)
[2023-06-13] MEDS: LEVOTHYROXINE PO SCH (20:51)
[2023-06-13] MEDS ORDERED: LOSARTAN POTASSIUM 50 MG TABLET ONE (22:14)
[2023-06-13] MEDS ORDERED: ROSUVASTATIN CA 20 MG TABLET ONE (22:14)
[2023-06-13] MEDS: ROSUVASTATIN CA 40 MG TABLET PO SCH (22:19)
[2023-06-13] MEDS: LOSARTAN POTASSIUM 50 MG TABLET PO SCH (22:19)
[2023-06-14] MEDS ORDERED: methylPREDNISolone NA SUCC 40 MG/1 ML VIAL ONE ×2 (03:48→09:16)
[2023-06-14 06:18] LABS: BASO % 0.1 % (0-2.0); HEMATOCRIT 29.6 % (32.4-45.2); HEMOGLOBIN 9.9 GM/dL (10.7-15.3); MCH 30.2 pg (25.7-33.7); MCHC 33.2 g/dl (32.0-36.0); MEAN CELL VOLUME 90.8 fl (80-96); MEAN PLT VOLUME 8.4 fl (7.5-11.1); MONO % 5.3 % (3.8-10.2); NEUT % 89.6 % (42.8-82.8); PLATELET COUNT 282 10^3/uL (134-434); RBC 3.27 M/mm3 (3.60-5.2); RDW 13.9 % (11.6-15.6); WHITE BLOOD COUNT 13.5 K/mm3 (4.0-10.0)
[2023-06-14 06:35] LABS: POTASSIUM 4.5 mmol/L (3.5-5.1)
[2023-06-14 06:43] LABS: CALCIUM 8.9 mg/dL (8.5-10.1)
[2023-06-14 06:44] LABS: ALBUMIN 1.7 g/dl (3.4-5.0); BLOOD UREA NITROGEN 41.6 mg/dL (7-18); MAGNESIUM 2.2 mg/dL (1.8-2.4)
[2023-06-14 06:47] LABS: CREATININE 1.2 mg/dL (0.55-1.3); PHOSPHOROUS 4.8 mg/dL (2.5-4.9)
[2023-06-14 06:48] LABS: BILIRUBIN,TOTAL 0.1 mg/dL (0.2-1); TOT PROT 5.2 g/dl (6.4-8.2)
[2023-06-14] MEDS ORDERED: LEVOTHYROXINE NA 125 MCG TABLET (FP) PO SCH (07:00)
[2023-06-14] MEDS ORDERED: ALBUTEROL SO4 2.5/IPRATROPIUM 0.5 INH SOL 3 ML VIAL.NEB. NEB ONE ×2 (08:06→13:25)
[2023-06-14] MEDS ORDERED: LEVOTHYROXINE NA 100 MCG TABLET (FP) ONE (08:06)
[2023-06-14] MEDS: LEVOTHYROXINE NA 100 MCG TABLET (FP) PO SCH (08:14)
[2023-06-14] MEDS ORDERED: FUROSEMIDE 40 MG TABLET (FP) ONE (09:13)
[2023-06-14] MEDS ORDERED: PARoxetine HCL 10 MG TABLET ONE (09:13)
[2023-06-14] MEDS ORDERED: amLODIPine BESYLATE 5 MG TABLET (FP) ONE (09:13)
[2023-06-14] MEDS ORDERED: ENOXAPARIN NA (PORCINE) 40 MG/0.4 ML DISP.SYRIN SQ ONE (09:14)
[2023-06-14] MEDS ORDERED: CEFTRIAXONE 1 GM/50 ML BAG ONE (09:15)
[2023-06-14] MEDS: ERGOCALCIFEROL (VIT D2) 50,000 UNIT (1.25 MG) CAPSULE PO SCH (10:08)
[2023-06-14] MEDS: CEFTRIAXONE 1 GM in DEXTROSE 5%-WATER - 50 ML IVPB SCH (10:09)
[2023-06-14] MEDS ORDERED: AZITHROMYCIN 500 MG TABLET ONE (10:13)
[2023-06-14] MEDS ORDERED: SUMAtriptan SUCCINATE 50 MG TABLET ONE (14:39)
[2023-06-14] MEDS: SUMAtriptan SUCCINATE 50 MG TABLET PO PRN (14:42)
[2023-06-14] MEDS: ROSUVASTATIN CA 20 MG TABLET PO SCH (21:52)
[2023-06-15] MEDS ORDERED: LEVOTHYROXINE NA 100 MCG TABLET (FP) PO SCH (07:48)
[2023-06-15 08:19] LABS: HEMATOCRIT 30.5 % (32.4-45.2); HEMOGLOBIN 9.9 GM/dL (10.7-15.3); MCHC 32.7 g/dl (32.0-36.0); MEAN CELL VOLUME 91.9 fl (80-96); MEAN PLT VOLUME 8.3 fl (7.5-11.1); PLATELET COUNT 299 10^3/uL (134-434); RBC 3.31 M/mm3 (3.60-5.2); RDW 13.9 % (11.6-15.6)
[2023-06-15 08:39] LABS: BLOOD UREA NITROGEN 54.8 mg/dL (7-18)
[2023-06-15 08:40] LABS: ALBUMIN 1.8 g/dl (3.4-5.0)
[2023-06-15 08:42] LABS: BILIRUBIN,TOTAL 0.2 mg/dL (0.2-1); CALCIUM 9.1 mg/dL (8.5-10.1); TOT PROT 5.1 g/dl (6.4-8.2)
[2023-06-15 08:43] LABS: CREATININE 1.5 mg/dL (0.55-1.3)
[2023-06-15 09:08] LABS: ANISOCYTOSIS 0; MACROCYTOSIS 0
[2023-06-15] MEDS: CHOLECALCIFEROL (VIT D3) 5000 UNITS (125 MCG) CAP PO SCH (10:04)
[2023-06-15] MEDS ORDERED: ALBUTEROL SO4 0.083% IH SOL 2.5 MG/3 ML VIAL.NEB. NEB PRN ×2 (12:55→12:57)
[2023-06-15] MEDS: methylPREDNISolone NA SUCC 40 MG/1 ML VIAL IVPUSH SCH (14:26)
[2023-06-15 15:08] VITALS: BMI 29.9
[2023-06-16] MEDS: rOPINIRole HCL 0.25 MG TABLET PO ONE (01:29)
[2023-06-16 07:29] LABS: MCH 30.6 pg (25.7-33.7); MCHC 33.2 g/dl (32.0-36.0); MEAN CELL VOLUME 92.1 fl (80-96); MEAN PLT VOLUME 8.2 fl (7.5-11.1); PLATELET COUNT 338 10^3/uL (134-434); RBC 3.26 M/mm3 (3.60-5.2); RDW 13.8 % (11.6-15.6); WHITE BLOOD COUNT 18.5 K/mm3 (4.0-10.0)
[2023-06-16 07:49] LABS: POTASSIUM 4.4 mmol/L (3.5-5.1)
[2023-06-16 07:55] LABS: CALCIUM 8.7 mg/dL (8.5-10.1)
[2023-06-16 07:56] LABS: ALBUMIN 1.8 g/dl (3.4-5.0); BLOOD UREA NITROGEN 69.7 mg/dL (7-18)
[2023-06-16 07:57] LABS: CREATININE 1.4 mg/dL (0.55-1.3)
[2023-06-16 07:59] LABS: BILIRUBIN,TOTAL 0.1 mg/dL (0.2-1); TOT PROT 5.2 g/dl (6.4-8.2)
[2023-06-16 09:42] LABS: ANISOCYTOSIS 2+; MACROCYTOSIS 0
[2023-06-16] MEDS: FLUTICASONE/UMECLIDIN/VILANTER(200-62.5-25 TRELEGY ELLIPTA) INAHLER IH SCH (09:50)
[2023-06-16] MEDS ORDERED: FLUTICASONE/UMECLIDIN/VILANTER(200-62.5-25 TRELEGY ELLIPTA) INAHLER IH SCH (10:00)
[2023-06-16 14:37] VITALS: BP 139/63; PULSE 85; RESP 20; TEMP 98.6
[2023-06-17] MEDS ORDERED: methylPREDNISolone NA SUCC 40 MG/1 ML VIAL IVPUSH SCH (10:00)
== END 2023-06-16 16:25 | disposition home or self-care (01) | DRG 193 ==
LOC: JER 01:35 → JERBED 03:55 → J4W 06-14 15:06
PROVIDERS: ADMIT Internal Medicine; ATTEND Internal Medicine
DX: J18.9 Pneumonia, unspecified organism (principal); J96.21 Acute and chronic respiratory failure with hypoxia; J44.0 Chronic obstructive pulmonary disease with (acute) lower respiratory infection; J44.1 Chronic obstructive pulmonary disease with (acute) exacerbation; N17.9 Acute kidney failure, unspecified; E03.9 Hypothyroidism, unspecified; E78.5 Hyperlipidemia, unspecified; G43.809 Other migraine, not intractable, without status migrainosus; I12.9 Hypertensive chronic kidney disease with stage 1 through stage 4 chronic kidney disease, or unspecified chronic kidney disease; E55.9 Vitamin D deficiency, unspecified; F32.A Depression, unspecified; N18.9 Chronic kidney disease, unspecified; E87.70 Fluid overload, unspecified; G25.81 Restless legs syndrome; G62.9 Polyneuropathy, unspecified; E66.9 Obesity, unspecified; Z68.30 Body mass index [BMI] 30.0-30.9, adult; R91.1 Solitary pulmonary nodule; E88.09 Other disorders of plasma-protein metabolism, not elsewhere classified; W18.30XA Fall on same level, unspecified, initial encounter; Y92.099 Unspecified place in other non-institutional residence as the place of occurrence of the external cause; Y99.9 Unspecified external cause status; Z99.81 Dependence on supplemental oxygen
CPT/HCPCS: 0241U-QW; 36415; 70450-TC; 71045-TC-FY; 71275-TC; 72125-TC; 76775-TC; 80053; 81003; 82803; 83605; 83735; 83880; 84100; 84439; 84443; 84484; 85025; 85610; 85730; 87070; 87086; 87205; 87899; 93005; 93010; 94010; 94640; 97116-GP; 97162-GP; 99285-25; Q9967

== ENCOUNTER 2023-11-15 15:45 | Emergency (ER) | payer OTHER ==
[2023-11-15 15:57] VITALS: TEMP 97.8; BMI 29.9
[2023-11-15] MEDS ORDERED: ACETAMINOPHEN 325 MG TABLET (FP) ONE (17:08)
[2023-11-15] MEDS: ACETAMINOPHEN 325 MG TABLET (FP) PO ONE (17:11)
[2023-11-15] MEDS: AZITHROMYCIN IVPB 500 MG in DEXTROSE 5%-WATER - 250 ML IVPB ONE (18:19)
[2023-11-15] MEDS ORDERED: AMOX TR/POT CLAV 875MG/125MG TABLETS (FP) ONE (18:28)
[2023-11-15] MEDS ORDERED: AZITHROMYCIN 500 MG TABLET ONE (18:28)
[2023-11-15] MEDS: AMOX TR/POT CLAV 875MG/125MG TABLETS (FP) PO ONE (18:32)
[2023-11-15] MEDS: AZITHROMYCIN 250 MG TABLET PO ONE (18:32)
[2023-11-15 18:34] LABS: POTASSIUM 4.1 mmol/L (3.5-5.1)
[2023-11-15 18:36] VITALS: BP 156/70; PULSE 82; RESP 18
[2023-11-15 18:38] LABS: HIV INTERPRETATION NEGATIVE (NEGATIVE)
[2023-11-15 18:56] LABS: CALCIUM 9.1 mg/dL (8.5-10.1)
[2023-11-15 18:58] LABS: BLOOD UREA NITROGEN 12.4 mg/dL (7-18)
[2023-11-15 19:00] LABS: BASO % 1.1 % (0-2.0); EOS % 2.9 % (0-4.5); HEMATOCRIT 30.9 % (32.4-45.2); LYMPH % 26.5 % (8-40); MCH 29.5 pg (25.7-33.7); MCHC 32.4 g/dl (32.0-36.0); MEAN CELL VOLUME 90.8 fl (80-96); MEAN PLT VOLUME 7.3 fl (7.5-11.1); MONO % 8.2 % (3.8-10.2); NEUT % 61.3 % (42.8-82.8); PLATELET COUNT 288 10^3/uL (134-434); RDW 15.5 % (11.6-15.6); WHITE BLOOD COUNT 6.2 K/mm3 (4.0-10.0)
[2023-11-15 19:01] LABS: BILIRUBIN,TOTAL 0.2 mg/dL (0.2-1)
[2023-11-15 20:05] LABS: CREATININE 0.6 mg/dL (0.55-1.3)
== END 2023-11-15 19:36 | disposition home or self-care (01) ==
LOC: JER 15:45
DX: R51.9 Headache, unspecified (principal); J18.9 Pneumonia, unspecified organism; I10 Essential (primary) hypertension; Z87.891 Personal history of nicotine dependence
CPT/HCPCS: 36415; 71045-TC-FY; 80053; 84484; 85025; 86803; 87389; 93005; 93010; 99285-25

== ENCOUNTER 2024-03-08 07:43 | Emergency (ER) | payer OTHER ==
[2024-03-08] MEDS ORDERED: ACETAMINOPHEN INJECTION 100 ML ONE (09:07)
[2024-03-08 09:08] VITALS: RESP 18; BMI 28.8
[2024-03-08] MEDS: ACETAMINOPHEN 1000 MG/100 ML BAG IVPB ONE (10:32)
[2024-03-08 10:36] LABS: BASO % 1.1 % (0-2.0); EOS % 0.8 % (0-4.5); HEMATOCRIT 33.1 % (32.4-45.2); HEMOGLOBIN 10.7 GM/dL (10.7-15.3); LYMPH % 16.6 % (8-40); MCHC 32.3 g/dl (32.0-36.0); MEAN CELL VOLUME 93.1 fl (80-96); MEAN PLT VOLUME 7.3 fl (7.5-11.1); MONO % 7.2 % (3.8-10.2); NEUT % 74.3 % (42.8-82.8); PLATELET COUNT 318 10^3/uL (134-434); RBC 3.55 M/mm3 (3.60-5.2); RDW 16.1 % (11.6-15.6); WHITE BLOOD COUNT 10.1 K/mm3 (4.0-10.0)
[2024-03-08 10:58] LABS: POTASSIUM 3.3 mmol/L (3.5-5.1)
[2024-03-08 10:59] LABS: CALCIUM 7.9 mg/dL (8.5-10.1)
[2024-03-08 11:01] LABS: BLOOD UREA NITROGEN 14.6 mg/dL (7-18)
[2024-03-08 11:03] LABS: CREATININE 0.6 mg/dL (0.55-1.3)
[2024-03-08 11:05] LABS: BILIRUBIN,TOTAL 0.2 mg/dL (0.2-1); TOT PROT 5.2 g/dl (6.4-8.2)
[2024-03-08 11:15] LABS: ERYTHROCYTE SEDIMENTATION RATE 105 mm/hr (0-30)
[2024-03-08 11:27] VITALS: BP 130/70; PULSE 73; TEMP 98.2
== END 2024-03-08 13:46 | disposition home or self-care (01) ==
LOC: JER 07:43
PROC: 3E033NZ Introduction of Analgesics, Hypnotics, Sedatives into Peripheral Vein, Percutaneous Approach (ICD-10-PCS; principal; 2024-03-08)
DX: M79.89 Other specified soft tissue disorders (principal); M79.642 Pain in left hand
CPT/HCPCS: 36415; 80053; 85025; 85651; 86140; 93971; 99285-25; J0131

== ENCOUNTER 2024-04-27 13:38 | Inpatient (IN) | payer OTHER ==
[2024-04-27 13:59] VITALS: BMI 29.0
[2024-04-27] MEDS ORDERED: ACETAMINOPHEN INJECTION 100 ML ONE (15:29)
[2024-04-27] MEDS: ACETAMINOPHEN 1000 MG/100 ML BAG IVPB ONE (15:53)
[2024-04-27 16:00] LABS: HEMATOCRIT 29.2 % (32.4-45.2); HEMOGLOBIN 9.1 GM/dL (10.7-15.3); MCH 29.1 pg (25.7-33.7); MCHC 31.2 g/dl (32.0-36.0); MEAN CELL VOLUME 93.3 fl (80-96); MEAN PLT VOLUME 7.3 fl (7.5-11.1); PLATELET COUNT 304 10^3/uL (134-434); RBC 3.13 M/mm3 (3.60-5.2); RDW 17.2 % (11.6-15.6); WHITE BLOOD COUNT 14.2 K/mm3 (4.0-10.0)
[2024-04-27 16:11] LABS: INR 0.87 (0.83-1.09); PROTHROMBIN TIME (PATIENT) 9.6 SEC (9.7-13.0)
[2024-04-27 16:13] LABS: ACTIVATED PTT 25.8 SECONDS (25.2-36.5)
[2024-04-27 16:23] LABS: POTASSIUM 4.1 mmol/L (3.5-5.1)
[2024-04-27 16:26] LABS: BLOOD UREA NITROGEN 17.6 mg/dL (7-18); CALCIUM 8.8 mg/dL (8.5-10.1)
[2024-04-27 16:28] LABS: CREATININE 0.6 mg/dL (0.55-1.3)
[2024-04-27 16:30] LABS: BILIRUBIN,TOTAL 0.2 mg/dL (0.2-1); TOT PROT 5.2 g/dl (6.4-8.2)
[2024-04-27] MEDS ORDERED: CLINDAMYCIN 600MG PREMIX IVPB 600 MG/50 ML BAG IVPB ONE (16:48)
[2024-04-27] MEDS: CLINDAMYCIN 600MG PREMIX IVPB 600 MG/50 ML BAG IVPB ONE (17:23)
[2024-04-27 17:36] LABS: ANISOCYTOSIS 0; HELMET CELLS 0; HOWELL-JOLLY BODIES 0; MACROCYTOSIS 0; OVALOCYTE 0; ROULEAU 0; SICKELED CELLS 0; TARGET CELLS 0; TEAR DROP CELLS 0; TOXIC GRANULATION 0
[2024-04-27] MEDS ORDERED: KETOROLAC TROMETHAMINE 15 MG/ML VIAL ONE (17:51)
[2024-04-27] MEDS: KETOROLAC TROMETHAMINE 15 MG/ML VIAL IVPUSH ONE (18:01)
[2024-04-27] MEDS ORDERED: MORPHINE SULFATE 2 MG/ML SYRINGE ONE (18:34)
[2024-04-27] MEDS ORDERED: ACETAMINOPHEN 325 MG TABLET (FP) PO PRN (19:25)
[2024-04-27] MEDS ORDERED: ACETAMINOPHEN 1000 MG/100 ML BAG IVPB PRN (19:32)
[2024-04-27] MEDS ORDERED: ALBUTEROL SO4 HFA INHALER IH PRN ×2 (21:50→21:55)
[2024-04-27] MEDS: VANCOMYCIN/WATER 1250 MG 1,250 MG/250 ML BAG IVPB ONE (22:17)
[2024-04-27] MEDS: ALPRAZolam 0.25 MG TABLET PO PRN (22:32)
[2024-04-28] MEDS: AMPICILLIN NA/SULBACTAM NA 3 GM in SODIUM CHLORIDE 100 ML IVPB SCH (02:05)
[2024-04-28] MEDS: FUROSEMIDE 20 MG TABLET (FP) PO SCH (06:00)
[2024-04-28] MEDS: LEVOTHYROXINE 75 MCG, LEVOTHYROXINE 100 MCG PO SCH (06:00)
[2024-04-28 08:29] LABS: HEMATOCRIT 29.1 % (32.4-45.2); HEMOGLOBIN 9.1 GM/dL (10.7-15.3); MCH 29.3 pg (25.7-33.7); MCHC 31.2 g/dl (32.0-36.0); MEAN CELL VOLUME 93.9 fl (80-96); MEAN PLT VOLUME 7.3 fl (7.5-11.1); PLATELET COUNT 314 10^3/uL (134-434); WHITE BLOOD COUNT 11.4 K/mm3 (4.0-10.0)
[2024-04-28 08:39] LABS: POTASSIUM 3.5 mmol/L (3.5-5.1)
[2024-04-28 08:43] LABS: CALCIUM 8.8 mg/dL (8.5-10.1)
[2024-04-28 08:44] LABS: ALBUMIN 1.9 g/dl (3.4-5.0); BLOOD UREA NITROGEN 14.7 mg/dL (7-18)
[2024-04-28 08:48] LABS: BILIRUBIN,TOTAL 0.2 mg/dL (0.2-1); CREATININE 0.6 mg/dL (0.55-1.3)
[2024-04-28 08:49] LABS: TOT PROT 4.9 g/dl (6.4-8.2)
[2024-04-28] MEDS: SUMAtriptan SUCCINATE 50 MG TABLET PO PRN (09:04)
[2024-04-28] MEDS: ROSUVASTATIN CA 20 MG TABLET PO SCH (09:19)
[2024-04-28] MEDS: amLODIPine BESYLATE 5 MG TABLET (FP) PO SCH (09:19)
[2024-04-28] MEDS: LOSARTAN POTASSIUM 50 MG TABLET PO SCH (09:20)
[2024-04-28] MEDS: ENOXAPARIN NA (PORCINE) 40 MG/0.4 ML DISP.SYRIN SQ SCH (09:20)
[2024-04-28] MEDS: PARoxetine HCL 20 MG TABLET PO SCH (09:20)
[2024-04-28] MEDS: COLCHICINE 0.6 MG TAB PO SCH (09:21)
[2024-04-28] MEDS ORDERED: LEVOTHYROXINE NA 25 MCG TABLET (FP) PO SCH (10:00)
[2024-04-28] MEDS: FLUTICASONE/UMECLIDIN/VILANTER(200-62.5-25 TRELEGY ELLIPTA) INAHLER IH SCH (13:23)
[2024-04-28] MEDS: CHOLECALCIFEROL (VIT D3) 5000 UNITS (125 MCG) CAP PO SCH (13:23)
[2024-04-29] MEDS: ACETAMINOPHEN 325 MG TABLET (FP) PO ONE (19:52)
[2024-04-29] MEDS: VANCOMYCIN 1 GM PREMIX (F) 1,000 MG/200 ML BAG IVPB SCH (22:15)
[2024-04-30] MEDS: BISACODYL 5 MG TABLET.DR (FP) PO ONE (03:44)
[2024-04-30] MEDS: ACETAMINOPHEN 1000 MG/100 ML BAG IVPB ONE (06:10)
[2024-04-30 09:47] LABS: BASO % 0.9 % (0-2.0); EOS % 1.6 % (0-4.5); HEMATOCRIT 32.7 % (32.4-45.2); HEMOGLOBIN 10.4 GM/dL (10.7-15.3); LYMPH % 13.9 % (8-40); MCH 29.6 pg (25.7-33.7); MCHC 31.7 g/dl (32.0-36.0); MEAN CELL VOLUME 93.3 fl (80-96); MEAN PLT VOLUME 7.5 fl (7.5-11.1); MONO % 5.1 % (3.8-10.2); NEUT % 78.5 % (42.8-82.8); PLATELET COUNT 312 10^3/uL (134-434); RBC 3.51 M/mm3 (3.60-5.2); RDW 17.3 % (11.6-15.6); WHITE BLOOD COUNT 10.5 K/mm3 (4.0-10.0)
[2024-04-30 10:14] LABS: POTASSIUM 3.6 mmol/L (3.5-5.1)
[2024-04-30 10:20] LABS: BLOOD UREA NITROGEN 15.3 mg/dL (7-18)
[2024-04-30 10:21] LABS: ALBUMIN 1.9 g/dl (3.4-5.0)
[2024-04-30 10:24] LABS: CREATININE 0.7 mg/dL (0.55-1.3)
[2024-04-30 10:26] LABS: BILIRUBIN,TOTAL 0.3 mg/dL (0.2-1); TOT PROT 5.2 g/dl (6.4-8.2)
[2024-04-30] MEDS ORDERED: VANCOMYCIN/WATER FOR INJ (PEG) 1,000 MG/200 ML BAG IVPB SCH (10:56)
[2024-04-30] MEDS: AMPICILLIN NA/SULBACTAM NA 3 GM in SODIUM CHLORIDE 100 ML IVPB SCH (17:41)
[2024-04-30] MEDS: POLYETHYLENE GLYCOL (HEALTHYLAX) 3350 17 GM PACKET PO SCH (21:24)
[2024-04-30] MEDS: VANCOMYCIN/WATER FOR INJ (PEG) 1,000 MG/200 ML BAG IVPB SCH (21:24)
[2024-05-01 09:24] LABS: BASO % 1.1 % (0-2.0); EOS % 2.5 % (0-4.5); HEMATOCRIT 30.9 % (32.4-45.2); HEMOGLOBIN 9.8 GM/dL (10.7-15.3); MCH 29.5 pg (25.7-33.7); MCHC 31.8 g/dl (32.0-36.0); MEAN CELL VOLUME 92.7 fl (80-96); MEAN PLT VOLUME 7.5 fl (7.5-11.1); MONO % 5.8 % (3.8-10.2); NEUT % 74.6 % (42.8-82.8); PLATELET COUNT 311 10^3/uL (134-434); RBC 3.33 M/mm3 (3.60-5.2); RDW 17.1 % (11.6-15.6)
[2024-05-01 09:51] LABS: POTASSIUM 3.3 mmol/L (3.5-5.1)
[2024-05-01 10:01] LABS: BLOOD UREA NITROGEN 15.6 mg/dL (7-18); CALCIUM 8.7 mg/dL (8.5-10.1); MAGNESIUM 1.8 mg/dL (1.8-2.4)
[2024-05-01 10:04] LABS: CREATININE 0.8 mg/dL (0.55-1.3)
[2024-05-01 10:05] LABS: PHOSPHOROUS 4.8 mg/dL (2.5-4.9)
[2024-05-01 10:08] VITALS: RESP 18
[2024-05-01] MEDS: POTASSIUM CHLORIDE ORAL LIQUID 20 MEQ/15 ML PO ONE (11:32)
[2024-05-01] MEDS: MAGNESIUM CITRATE 300 ML BOTTLE PO ONE (20:34)
[2024-05-02] MEDS: MELATONIN 5 MG TABLETS PO ONE (00:12)
[2024-05-02 09:25] LABS: INR 0.95 (0.83-1.09); PROTHROMBIN TIME (PATIENT) 10.4 SEC (9.7-13.0)
[2024-05-02 09:31] LABS: HEMATOCRIT 30.3 % (34.1-44.9); HEMOGLOBIN 8.8 g/dL (11.2-15.7); MEAN PLT VOLUME 9.8 fl (9.4-12.3); PLATELET COUNT # 263 x10^3/uL (182-369); RDW 15.9 % (12.4-16.6)
[2024-05-02 09:45] LABS: POTASSIUM 3.9 mmol/L (3.5-5.1)
[2024-05-02 09:53] LABS: CALCIUM 8.6 mg/dL (8.5-10.1)
[2024-05-02 09:55] LABS: CREATININE 0.7 mg/dL (0.55-1.3)
[2024-05-02] MEDS: MELATONIN 5 MG TABLETS PO SCH (21:45)
[2024-05-02] MEDS: ALPRAZolam 0.25 MG TABLET PO PRN (22:48)
[2024-05-03 16:10] VITALS: BP 132/68; PULSE 84; TEMP 98.8
== END 2024-05-03 17:37 | disposition home or self-care (01) | DRG 746 ==
LOC: JER 13:38 → JERBED 18:35 → OBSVTOIN 19:25 → J5S 20:51
PROVIDERS: ADMIT Internal Medicine; ATTEND Internal Medicine
PROC: 0U9MXZZ Drainage of Vulva, External Approach (ICD-10-PCS; principal; 2024-05-02)
DX: N76.2 Acute vulvitis (principal); J96.11 Chronic respiratory failure with hypoxia; I10 Essential (primary) hypertension; J44.9 Chronic obstructive pulmonary disease, unspecified; E03.9 Hypothyroidism, unspecified; I16.0 Hypertensive urgency; N76.4 Abscess of vulva; D64.9 Anemia, unspecified; Z99.81 Dependence on supplemental oxygen
CPT/HCPCS: 36415; 71045-TC-FY; 71250-TC; 72193-TC; 76882-TC-RT-FY; 80048; 80053; 83735; 84100; 85025; 85027; 85610; 85651; 85730; 86140; 86850; 86900; 86901; 87040; 87070; 87077; 87081; 87186; 87205; 97116-GP; 97161-GP; 99285-25; G0378; G0480; J0131; Q9967